=== PATIENT | male | born 1985 | race Caucasian/White ===

== ENCOUNTER 2021-04-08 15:06 | Emergency (ER) | payer OTHER ==
[2021-04-08 16:17] LABS: CORONAVIRUS 2019 SARS-COV-2 NEGATIVE (NEGATIVE); INFLUENZA A NAA NEGATIVE (NEGATIVE)
[2021-04-08 17:12] LABS: BASOPHIL 0.4 % (0-2); EOSINOPHIL 3.1 % (0-5); HGB 14.9 g/dl (13.2-18.0); LYMPHOCYTE 16.5 % (15-48); MCH 29.4 pg (25.0-31.0); MCHC 33.1 g/dL (32.0-36.0); MCV 88.9 fL (78.0-100.0); MONOCYTE 11.2 % (0-12); MPV 9.1 fL (6.0-9.5); NEUTROPHIL 68.4 % (41-80); NRBC 0; PLT 273 K/uL (150-400); RBC 5.06 M/uL (4.70-6.00); RDW 12.2 % (11.5-14.0); WBC 5.5 K/uL (4.0-10.5)
[2021-04-08 17:28] LABS: CREATININE 1.08 mg/dL (0.67-1.17)
== END 2021-04-08 17:47 | disposition home or self-care (01) ==
LOC: FER 15:06
PROVIDERS: Nurse Practitioner Family
DX: B34.9 Viral infection, unspecified (principal); Z20.822 Contact with and (suspected) exposure to COVID-19
CPT/HCPCS: 36415; 71045; 80048; 85025; U0002